=== PATIENT | female | born 1960 | race Caucasian/White ===

== ENCOUNTER 2016-07-20 22:00 | Inpatient (IN) | payer OTHER ==
[~2016-07-20] VITALS: Ht 162.6 cm; Wt 87.6 kg
[~2016-07-20 22:00] MED LIST: ABILIFY; ADVAIR HFA120 INHALA IH; ALBUTEROL; ALBUTEROL SULF8.5 GM IH; ALBUTEROL2.5 MG/3 M IH; AMBIEN10 MG PO; ATIVAN0.5 MG PO; ATIVAN1 MG PO; AUGMENTIN875 MG PO; AZITHROMYCIN250 MG PO; AZITHROMYCIN250 MG1 PO; AZITHROMYCIN500 M1 PO; Advair 250/50 Diskus IH; BACTRIM,SEPT1 TABLE1 PO; BACTRIM,SEPT1 TABLET PO; BENADRYL25 MG PO; BENADRYL50 MG PO; BENTYL10 MG PO; BENZONATATE100 MG PO; BENZTROPINE ME0.5 MG PO; BREO ELLIPTA I1 EACH IH; BUSPAR10 MG PO; BUSPAR15 MG PO; BUSPIRONE HCL10 MG PO; CO Q-10100 MG PO; COUMADIN2.5 MG PO; COZAAR25 MG PO; DELTASONE20 M1 PO; DIAZEPAM; DIAZEPAM2 MG PO; DICYCLOMINE HCL10 MG PO; DONNATAL1 TABLET PO; DOXYCYCLINE HY100 MG PO; DUONEB 2.5-0.5 M3 ML AEROSOL; EFFEXOR75 MG PO; FAMOTIDINE20 MG PO; FLEXERIL10 MG PO; GABAPENTIN300 MG PO; GABAPENTIN600 MG PO; GLUCOSA-CHOND-1 EACH PO; HYDROCODON-ACE1 EAC7 PO; INCRUSE ELLI62.5 MCG IH; K-DUR20 MEQ PO; KEFLEX500 MG PO; KLONOPIN1 MG PO; LATUDA60 MG PO; LEVAQUIN750 MG PO; LEXAPRO10 MG PO; LORAZEPAM0.5 MG PO; LUNESTA; MEDROL DOSEPAK4 MG PO; MICONAZOLE NITR45 GM VG; MORPHINE SULFAT15 M1 PO; MOVANTIK25 MG PO; NEURONTIN100 MG PO; NEXIUM40 MG PO; NICODERM CQ1 EAC2 TD; NICOTINE PATCH1 EAC1 TD; NICOTINE PATCH1 EAC2 TD; NORCO 10/3251 TABLET PO; NORCO 5/3251 TABLET PO; OMEPRAZOLE20 MG PO; OMEPRAZOLE40 M1 PO; PEPCID20 MG PO; PRAZOSIN HCL1 MG PO; PREDNISONE10 MG PO; PREDNISONE20 MG PO; PREDNISONE50 MG PO; PRILOSEC20 MG PO; PRILOSEC40 MG PO; PROAIR HFA8.5 GM IH; PROPRANOLOL HCL10 MG PO; PROPRANOLOL HCL80 MG PO; PROTONIX40 MG PO; PROVENTIL,2.5 MG/3 M IH; Proventil,Ventolin H IH; RISPERDAL M-TAB3 MG PO; RISPERDAL1 MG PO; RISPERDAL2 MG PO; RISPERDAL3 MG PO; RISPERIDONE1 MG PO; RISPERIDONE2 MG PO; ROBITUSSIN AC,T10 ML PO; SERTRALINE HCL100 MG PO; SERTRALINE HCL50 MG PO; SINGULAIR10 MG PO; SPIRIVA1 INHALATI IH; STRATTERA100 MG PO; SYMBICORT IH; SYMBICORT60 INHALAT IH; SYNTHROID150 MCG PO; TEMAZEPAM; TEMAZEPAM15 MG PO; TERBINAFINE HC250 MG PO; TYLENOL EXTRA500 MG PO; TYLENOL REGULA325 MG PO; ULTRAM50 MG PO; VENTOLIN HFA18 GM IH; VITAMIN D1000 INTUN PO; VOLTAREN75 MG PO; WELLBUTRIN PO; WELLBUTRIN SR150 MG PO; WELLBUTRIN XL150 MG PO; ZITHROMAX TRI-500 MG PO; ZITHROMAX Z-PA250 MG PO; ZITHROMAX250 MG PO; ZOFRAN4 MG PO; ZOLOFT25 MG PO; ZOLOFT50 MG PO; ZOLPIDEM TARTRA10 MG PO; ZOLPIDEM TARTRAT5 MG PO; Zithromax PO; predniSONE PO; risperDAL PO
[2016-07-20 22:33] LABS: HEMATOCRIT 38.9 % (36.0-46.0); MCH 31.3 PG (29.0-34.0); MCHC 33.9 G/DL (30.0-36.0); MCV 92.2 FL (83-99); MEAN PLAT.VOLUME 9.6 uM^3 (9.5-12.4); PLATELET COUNT 228 K/uL (156-360); RBC DIS.WIDTH-CV 13.4 % (11.8-14.6); RBC DIS.WIDTH-SD 44.1 % (39-53); RED BLOOD COUNT 4.22 M/uL (3.80-5.20); WHITE BLOOD COUNT 18.7 K/uL (4.1-10.2)
[2016-07-20 22:46] LABS: CHLORIDE 107 mEq/L (99-109); POTASSIUM 3.5 mEq/L (3.7-5.4)
[2016-07-20 22:47] LABS: SODIUM 139 mEq/L (136-147)
[2016-07-20 22:48] LABS: GLUCOSE 106 mg/dL (70-99)
[2016-07-20 22:50] LABS: ANION GAP 11 MEQ/L (2-14)
[2016-07-20 22:52] LABS: GFR ESTIMATE (CALCULATED) > 59 mL/min/
[2016-07-20 22:53] LABS: UREA NITROGEN (BUN) 8 mg/dL (9-23)
[2016-07-20 22:54] LABS: TROP-I INTERPRETATION NEGATIVE; TROPONIN-I < 0.01 ng/mL (0.0-0.30)
[2016-07-20 23:05] LABS: TOTAL BILIRUBIN 0.3 mg/dL (0.0-1.0)
[2016-07-20 23:07] LABS: ALKALINE PHOSPHATASE 58 IU/L (3-129)
[2016-07-20 23:09] LABS: DIRECT BILIRUBIN 0.1 mg/dL (0.0-0.3)
[2016-07-20 23:10] LABS: LIPASE 5 U/L (1.0-51.0)
[2016-07-21] MEDS ORDERED: FLEXERIL10 MG PO (00:25)
[2016-07-21] MEDS ORDERED: DELTASONE20 M1 PO (00:27)
[2016-07-21] MEDS ORDERED: CEFUROXIME500 MG PO (00:28)
[2016-07-21] MEDS ORDERED: LO-DOSE ASPIRIN81 M2 PO (00:28)
[2016-07-21] MEDS ORDERED: VRAYLAR3 MG PO (00:28)
[2016-07-21 12:00] VITALS: BP 113/66
[2016-07-21 16:40] VITALS: BP 134/76
[2016-07-21 18:25] LABS: INFLUENZA A VIRAL ANTIGEN NEGATIVE; INFLUENZA B VIRAL ANTIGEN NEGATIVE
[2016-07-21 23:17] VITALS: BP 118/71
[2016-07-22 04:25] VITALS: BP 118/70
[2016-07-22 06:31] LABS: EOSINOPHIL (%) 0 % (0-5); IMMATURE GRANULOCYTE (%) 0.4 % (0.0-0.7); IMMATURE GRANULOCYTE COUNT 0.1 K/uL; LYMPHOCYTE COUNT 0.8 K/uL (1.0-2.8); MCH 31.4 PG (29.0-34.0); MCHC 33.6 G/DL (30.0-36.0); MCV 93.5 FL (83-99); MEAN PLAT.VOLUME 9.9 uM^3 (9.5-12.4); MONOCYTE (%) 2.3 % (3-12); MONOCYTE COUNT 0.3 K/uL (0-0.8); NEUTROPHIL (%) 91.7 % (45-76); NEUTROPHIL COUNT 13.4 K/uL (1.8-6.4); PLATELET COUNT 217 K/uL (156-360); RBC DIS.WIDTH-CV 13.4 % (11.8-14.6); RBC DIS.WIDTH-SD 45.9 % (39-53); RED BLOOD COUNT 3.85 M/uL (3.80-5.20); WHITE BLOOD COUNT 14.6 K/uL (4.1-10.2)
[2016-07-22 07:08] LABS: ANION GAP 13 MEQ/L (2-14); CHLORIDE 105 MEQ/L (99-109); GFR ESTIMATE (CALCULATED) > 59 mL/min/; GLUCOSE 151 mg/dL (70-99); POTASSIUM 3.7 MEQ/L (3.7-5.4); SAMPLE HEMOLYSIS CHECK 0; SAMPLE ICTERIC CHECK 0; SAMPLE LIPEMIA CHECK 0; SODIUM 142 MEQ/L (136-147); UREA NITROGEN (BUN) 7 mg/dL (9-23)
[2016-07-22 08:27] VITALS: BP 131/69
[2016-07-22 12:22] VITALS: BP 111/58
[2016-07-22 16:14] VITALS: BP 150/73
[2016-07-22 23:27] VITALS: BP 158/88
[2016-07-23 06:45] LABS: HEMATOCRIT 34.9 % (36.0-46.0); MCH 31.2 PG (29.0-34.0); MCHC 33.5 G/DL (30.0-36.0); MCV 93.1 FL (83-99); MEAN PLAT.VOLUME 9.9 uM^3 (9.5-12.4); PLATELET COUNT 207 K/uL (156-360); RBC DIS.WIDTH-CV 13.4 % (11.8-14.6); RBC DIS.WIDTH-SD 45.8 % (39-53); RED BLOOD COUNT 3.75 M/uL (3.80-5.20); WHITE BLOOD COUNT 11.6 K/uL (4.1-10.2)
[2016-07-23 07:01] LABS: EOSINOPHIL (%) 0 % (0-5); IMMATURE GRANULOCYTE (%) 1.3 % (0.0-0.7); IMMATURE GRANULOCYTE COUNT 0.2 K/uL; MONOCYTE (%) 4.1 % (3-12); MONOCYTE COUNT 0.5 K/uL (0-0.8); NEUTROPHIL (%) 85.7 % (45-76)
[2016-07-23 07:14] LABS: ANION GAP 7 MEQ/L (2-14); CHLORIDE 106 MEQ/L (99-109); GFR ESTIMATE (CALCULATED) > 59 mL/min/; GLUCOSE 121 mg/dL (70-99); POTASSIUM 4.1 MEQ/L (3.7-5.4); SAMPLE HEMOLYSIS CHECK 0; SAMPLE ICTERIC CHECK 0; SAMPLE LIPEMIA CHECK 0; SODIUM 141 MEQ/L (136-147); UREA NITROGEN (BUN) 12 mg/dL (9-23)
[2016-07-23 07:46] VITALS: BP 123/74
[2016-07-23] MEDS ORDERED: PREDNISONE10 MG PO (14:26)
[2016-07-23] MEDS ORDERED: DOXYCYCLINE HY100 MG PO (14:26)
== END 2016-07-23 16:23 | disposition home or self-care (01) | DRG 192 ==
LOC: EME → EDBD 22:00 → EDOF 07-21 01:17 → 5EAST 07-21 01:17
PROVIDERS: Emergency Medicine; Family Medicine
DX: J44.1 Chronic obstructive pulmonary disease with (acute) exacerbation (principal); F25.9 Schizoaffective disorder, unspecified; I10 Essential (primary) hypertension; R09.02 Hypoxemia; F32.9 Major depressive disorder, single episode, unspecified; F41.9 Anxiety disorder, unspecified; K21.9 Gastro-esophageal reflux disease without esophagitis; G47.33 Obstructive sleep apnea (adult) (pediatric); Z86.718 Personal history of other venous thrombosis and embolism; J45.909 Unspecified asthma, uncomplicated; F17.210 Nicotine dependence, cigarettes, uncomplicated; G89.29 Other chronic pain; M54.9 Dorsalgia, unspecified; J44.0 Chronic obstructive pulmonary disease with (acute) lower respiratory infection; J20.9 Acute bronchitis, unspecified
CPT/HCPCS: 71020; 80048; 80076; 83605; 83690; 84484; 85025; 85027; 87040; 87502; 93005; 94640; 94640 76; 94799; 99202; 99281; 99285; J0696; J1650; J1885; J2930; J7030; J7050; J7644

== ENCOUNTER 2016-08-14 21:15 | Inpatient (IN) | payer OTHER ==
[~2016-08-14] VITALS: Ht 162.6 cm; Wt 89.4 kg
[~2016-08-14 21:15] MED LIST changes: +CEFUROXIME500 MG PO; +LO-DOSE ASPIRIN81 M2 PO; +VRAYLAR3 MG PO
[2016-08-14 21:56] LABS: EOSINOPHIL (%) 1.6 % (0-5); EOSINOPHIL COUNT 0.1 K/uL (0-0.3); HEMATOCRIT 37.2 % (36.0-46.0); IMMATURE GRANULOCYTE (%) 0.2 % (0.0-0.7); IMMATURE GRANULOCYTE COUNT 0.2 K/uL; LYMPHOCYTE COUNT 2.9 K/uL (1.0-2.8); MCH 31.9 PG (29.0-34.0); MCHC 34.4 G/DL (30.0-36.0); MCV 92.8 FL (83-99); MEAN PLAT.VOLUME 8.7 uM^3 (9.5-12.4); MONOCYTE (%) 7.6 % (3-12); MONOCYTE COUNT 0.7 K/uL (0-0.8); NEUTROPHIL (%) 58.2 % (45-76); NEUTROPHIL COUNT 5.2 K/uL (1.8-6.4); PLATELET COUNT 242 K/uL (156-360); RBC DIS.WIDTH-CV 14.2 % (11.8-14.6); RBC DIS.WIDTH-SD 46.9 % (39-53); RED BLOOD COUNT 4.01 M/uL (3.80-5.20); WHITE BLOOD COUNT 8.9 K/uL (4.1-10.2)
[2016-08-14 22:04] LABS: CHLORIDE 107 mEq/L (99-109); POTASSIUM 3.5 mEq/L (3.7-5.4); SODIUM 141 mEq/L (136-147)
[2016-08-14 22:06] LABS: GLUCOSE 95 mg/dL (70-99)
[2016-08-14 22:07] LABS: ANION GAP 12 MEQ/L (2-14)
[2016-08-14 22:08] LABS: TOTAL BILIRUBIN 0.3 mg/dL (0.0-1.0)
[2016-08-14 22:10] LABS: ALKALINE PHOSPHATASE 48 IU/L (3-129); GFR ESTIMATE (CALCULATED) > 59 mL/min/
[2016-08-14 22:11] LABS: UREA NITROGEN (BUN) 5 mg/dL (9-23)
[2016-08-14 22:17] LABS: TROP-I INTERPRETATION NEGATIVE; TROPONIN-I < 0.01 ng/mL (0.0-0.30)
[2016-08-14 23:34] LABS: INFLUENZA A VIRAL ANTIGEN NEGATIVE; INFLUENZA B VIRAL ANTIGEN NEGATIVE
[2016-08-15 04:11] VITALS: BP 127/72
[2016-08-15 08:00] VITALS: BP 134/72
[2016-08-15 12:05] VITALS: BP 120/74
[2016-08-15] MEDS ORDERED: VRAYLAR4.5 MG PO (12:28)
[2016-08-15] MEDS ORDERED: DUONEB 2.5-0.5 M3 ML AEROSOL (12:28)
[2016-08-15] MEDS ORDERED: LOPROX 0.77% CR30 GM TP (12:30)
[2016-08-15] MEDS ORDERED: VITAMIN D-32000 UNI2 PO (12:30)
[2016-08-15] MEDS ORDERED: OYSCO-500500 MG PO (12:31)
[2016-08-15 16:03] VITALS: BP 136/86
[2016-08-15 19:00] VITALS: BP 131/64
[2016-08-15 23:40] VITALS: BP 127/69
[2016-08-16 03:51] VITALS: BP 136/75
[2016-08-16 07:12] LABS: ANION GAP 9 MEQ/L (2-14); CHLORIDE 101 MEQ/L (99-109); GFR ESTIMATE (CALCULATED) > 59 mL/min/; GLUCOSE 96 mg/dL (70-99); POTASSIUM 3.9 MEQ/L (3.7-5.4); SAMPLE HEMOLYSIS CHECK 0; SAMPLE ICTERIC CHECK 0; SAMPLE LIPEMIA CHECK 0; SODIUM 135 MEQ/L (136-147); UREA NITROGEN (BUN) 9 mg/dL (9-23)
[2016-08-16 07:16] VITALS: BP 141/80
[2016-08-16 07:38] LABS: EOSINOPHIL (%) 0 % (0-5); HEMATOCRIT 37.3 % (36.0-46.0); IMMATURE GRANULOCYTE (%) 0.5 % (0.0-0.7); IMMATURE GRANULOCYTE COUNT 0.1 K/uL; MCH 31.3 PG (29.0-34.0); MCHC 33.8 G/DL (30.0-36.0); MCV 92.8 FL (83-99); MEAN PLAT.VOLUME 9.6 uM^3 (9.5-12.4); MONOCYTE (%) 7.2 % (3-12); MONOCYTE COUNT 0.9 K/uL (0-0.8); NEUTROPHIL (%) 84.3 % (45-76); NEUTROPHIL COUNT 10.7 K/uL (1.8-6.4); PLATELET COUNT 239 K/uL (156-360); RBC DIS.WIDTH-CV 14.3 % (11.8-14.6); RBC DIS.WIDTH-SD 49.1 % (39-53); RED BLOOD COUNT 4.02 M/uL (3.80-5.20)
[2016-08-16 07:51] LABS: WHITE BLOOD COUNT 12.7 K/uL (4.1-10.2)
[2016-08-16 12:00] VITALS: BP 136/80
[2016-08-16 16:00] VITALS: BP 143/82
[2016-08-16] MEDS ORDERED: AZITHROMYCIN500 M1 PO (18:44)
[2016-08-16] MEDS ORDERED: PREDNISONE50 MG PO (18:48)
[2016-08-16] MEDS ORDERED: DUONEB 2.5-0.5 M3 ML AEROSOL (20:11)
== END 2016-08-16 20:45 | disposition home or self-care (01) | DRG 192 ==
LOC: EME 21:15 → EDOF 08-15 02:26 → 4EAST 08-15 03:59
PROVIDERS: Emergency Medicine; Family Medicine Sports Medicine
DX: J44.1 Chronic obstructive pulmonary disease with (acute) exacerbation (principal); F12.10 Cannabis abuse, uncomplicated; F32.9 Major depressive disorder, single episode, unspecified; K21.9 Gastro-esophageal reflux disease without esophagitis; F25.1 Schizoaffective disorder, depressive type; M54.9 Dorsalgia, unspecified; R09.02 Hypoxemia; J20.9 Acute bronchitis, unspecified; Z88.1 Allergy status to other antibiotic agents; Z91.011 Allergy to milk products
CPT/HCPCS: 71020; 80048; 80053; 83880; 84484; 85025; 87502; 93005; 94640; 94640 76; 94799; 99202; 99281; 99285; J0456; J2930; J7512

== ENCOUNTER 2016-09-10 09:35 | Inpatient (IN) | payer OTHER ==
[~2016-09-10] VITALS: Ht 162.6 cm; Wt 83.2 kg
[~2016-09-10 09:35] MED LIST changes: +LOPROX 0.77% CR30 GM TP; +OYSCO-500500 MG PO; +VITAMIN D-32000 UNI2 PO; +VRAYLAR4.5 MG PO
[2016-09-10 12:01] LABS: ADD MIUA? NO; BILIRUBIN NEGATIVE; BLOOD NEGATIVE; COLOR YELLOW ((YELLOW)); GLUCOSE (STRIP) NEGATIVE; KETONES NEGATIVE; LEUKOCYTES NEGATIVE; NITRITE NEGATIVE; PROTEIN (STRIP) NEGATIVE; SPECIFIC GRAVITY 1.006 (1.000-1.030); UROBILINOGEN 0.2 MG/DL (0.2-1.0)
[2016-09-10 12:02] LABS: EOSINOPHIL (%) 1.3 % (0-5); EOSINOPHIL COUNT 0.1 K/uL (0-0.3); HEMATOCRIT 37.4 % (36.0-46.0); IMMATURE GRANULOCYTE (%) 0.5 % (0.0-0.7); IMMATURE GRANULOCYTE COUNT 0.3 K/uL; LYMPHOCYTE COUNT 1.4 K/uL (1.0-2.8); MCH 30.8 PG (29.0-34.0); MCHC 33.2 G/DL (30.0-36.0); MCV 92.8 FL (83-99); MEAN PLAT.VOLUME 9.3 uM^3 (9.5-12.4); MONOCYTE COUNT 0.6 K/uL (0-0.8); NEUTROPHIL (%) 65.4 % (45-76); NEUTROPHIL COUNT 4.1 K/uL (1.8-6.4); PLATELET COUNT 227 K/uL (156-360); RBC DIS.WIDTH-CV 13.8 % (11.8-14.6); RBC DIS.WIDTH-SD 45.7 % (39-53); RED BLOOD COUNT 4.03 M/uL (3.80-5.20)
[2016-09-10 12:11] LABS: CHLORIDE 106 mEq/L (99-109); POTASSIUM 3.6 mEq/L (3.7-5.4); SODIUM 140 mEq/L (136-147)
[2016-09-10 12:14] LABS: GLUCOSE 134 mg/dL (70-99)
[2016-09-10 12:15] LABS: ANION GAP 9 MEQ/L (2-14); TOTAL BILIRUBIN 0.3 mg/dL (0.0-1.0)
[2016-09-10 12:16] LABS: SERUM ETHYL ALCOHOL < 10 mg/dL
[2016-09-10 12:17] LABS: ADD MEDTOX COMMENT Y; AMPHETAMINE NEGATIVE (500 ng/mL); BARBITURATES NEGATIVE (200 ng/mL); BENZODIAZEPINES NEGATIVE (150 ng/mL); COCAINE NEGATIVE (150 ng/mL); INTERNAL CONTROLS VALID? YES; METHADONE NEGATIVE (200 ng/mL); METHAMPHETAMINE NEGATIVE (500 ng/mL); OPIATES (MORPHINE) PRESUMPTIVE POSITIVE (100 ng/mL); OXYCODONE NEGATIVE (100 ng/mL); PHENCYCLIDINE NEGATIVE (25 ng/mL); PROPOXYPHENE NEGATIVE (300 ng/mL); THC CANNABINOIDS NEGATIVE (50 ng/mL); TRICYCLIC ANTIDEPRESSANTS NEGATIVE (300 ng/mL)
[2016-09-10 12:17] LABS: ALKALINE PHOSPHATASE 59 IU/L (3-129); GFR ESTIMATE (CALCULATED) > 59 mL/min/
[2016-09-10 12:18] LABS: UREA NITROGEN (BUN) 5 mg/dL (9-23)
[2016-09-10 12:27] LABS: WHITE BLOOD COUNT 6.2 K/uL (4.1-10.2)
[2016-09-10] MEDS ORDERED: BREO ELLIPTA I1 EACH IH (15:23)
[2016-09-10] MEDS ORDERED: VOLTAREN 1% GE100 GM TP (15:24)
[2016-09-10] MEDS ORDERED: AMLODIPINE BESYL5 MG PO (15:25)
[2016-09-10] MEDS ORDERED: VITAMIN D31000 UNIT PO (15:29)
[2016-09-10] MEDS ORDERED: PREDNISONE10 MG PO (15:30)
[2016-09-10 16:29] VITALS: BP 136/80
[2016-09-11 07:48] VITALS: BP 143/93
[2016-09-11 15:36] VITALS: BP 109/61
[2016-09-12 08:00] VITALS: BP 140/67
[2016-09-12 09:08] LABS: EOSINOPHIL (%) 2.4 % (0-5); EOSINOPHIL COUNT 0.1 K/uL (0-0.3); HEMATOCRIT 37.4 % (36.0-46.0); IMMATURE GRANULOCYTE (%) 0.2 % (0.0-0.7); LYMPHOCYTE COUNT 1.9 K/uL (1.0-2.8); MCH 30.9 PG (29.0-34.0); MCHC 33.7 G/DL (30.0-36.0); MCV 91.7 FL (83-99); MEAN PLAT.VOLUME 9.4 uM^3 (9.5-12.4); MONOCYTE (%) 8.9 % (3-12); MONOCYTE COUNT 0.5 K/uL (0-0.8); NEUTROPHIL (%) 55.9 % (45-76); NEUTROPHIL COUNT 3.3 K/uL (1.8-6.4); PLATELET COUNT 195 K/uL (156-360); RBC DIS.WIDTH-CV 13.7 % (11.8-14.6); RBC DIS.WIDTH-SD 45.7 % (39-53); RED BLOOD COUNT 4.08 M/uL (3.80-5.20); WHITE BLOOD COUNT 5.9 K/uL (4.1-10.2)
[2016-09-12 09:45] LABS: ANION GAP 7 MEQ/L (2-14); CHLORIDE 100 MEQ/L (99-109); GFR ESTIMATE (CALCULATED) > 59 mL/min/; GLUCOSE 117 mg/dL (70-99); POTASSIUM 3.6 MEQ/L (3.7-5.4); SAMPLE HEMOLYSIS CHECK 0; SAMPLE ICTERIC CHECK 0; SAMPLE LIPEMIA CHECK 0; SODIUM 134 MEQ/L (136-147); UREA NITROGEN (BUN) 7 mg/dL (9-23)
[2016-09-12 15:37] VITALS: BP 127/72
[2016-09-13 05:41] VITALS: BP 132/86
[2016-09-13 09:21] VITALS: BP 111/64
[2016-09-13 15:11] VITALS: BP 111/57
[2016-09-14 07:36] VITALS: BP 116/67
[2016-09-14 15:28] VITALS: BP 125/75
[2016-09-15 08:05] VITALS: BP 144/66
[2016-09-15 15:01] VITALS: BP 137/75
[2016-09-16 07:34] VITALS: BP 128/96
[2016-09-16 15:31] VITALS: BP 128/72
[2016-09-17 08:01] VITALS: BP 133/68
[2016-09-17 15:03] VITALS: BP 136/75
[2016-09-18 07:38] VITALS: BP 130/67
[2016-09-18 15:16] VITALS: BP 104/55
[2016-09-19 07:51] VITALS: BP 141/77
[2016-09-19] MEDS ORDERED: SERTRALINE HCL100 MG PO (09:40)
[2016-09-19] MEDS ORDERED: OLANZAPINE10 MG PO (09:40)
[2016-09-19] MEDS ORDERED: PREDNISONE10 MG PO (09:40)
[2016-09-19] MEDS ORDERED: FLEXERIL10 MG PO (09:40)
[2016-09-19] MEDS ORDERED: DOCUSATE SODIU100 MG PO (09:40)
[2016-09-19] MEDS ORDERED: AMLODIPINE BESYL5 MG PO (09:40)
[2016-09-19] MEDS ORDERED: PRAZOSIN HCL1 MG PO (09:40)
== END 2016-09-19 10:55 | disposition home or self-care (01) | DRG 885 ==
LOC: EME 09:35 → 1WEST 14:30 → EDOF 14:30 → 1WEST 16:27
PROVIDERS: Emergency Medicine; Family Medicine Sports Medicine
DX: F25.1 Schizoaffective disorder, depressive type (principal); R45.851 Suicidal ideations; F41.9 Anxiety disorder, unspecified; K21.9 Gastro-esophageal reflux disease without esophagitis; Z91.19 Patient's noncompliance with other medical treatment and regimen; G47.33 Obstructive sleep apnea (adult) (pediatric); G89.29 Other chronic pain; I10 Essential (primary) hypertension; F17.200 Nicotine dependence, unspecified, uncomplicated; Z86.718 Personal history of other venous thrombosis and embolism
CPT/HCPCS: 71020; 80048; 80053; 81003; 84999; 85025; 90839; 94640; 94640 76; 94760; 97150 GO; 97165 GO; 99202; 99281; 99285; G0480; J7512

== ENCOUNTER 2016-10-03 16:32 | Emergency (ER) | payer OTHER ==
[~2016-10-03] VITALS: Ht 162.6 cm; Wt 85.3 kg
[~2016-10-03 16:32] MED LIST changes: +AMLODIPINE BESYL5 MG PO; +DOCUSATE SODIU100 MG PO; +OLANZAPINE10 MG PO; +VITAMIN D31000 UNIT PO; +VOLTAREN 1% GE100 GM TP
[2016-10-03 19:26] VITALS: BP 154/82
== END 2016-10-03 19:27 | disposition home or self-care (01) ==
LOC: EME 16:32
DX: F32.9 Major depressive disorder, single episode, unspecified (principal); F31.9 Bipolar disorder, unspecified; F25.1 Schizoaffective disorder, depressive type; F17.200 Nicotine dependence, unspecified, uncomplicated; Z88.1 Allergy status to other antibiotic agents; Z91.011 Allergy to milk products; Z79.82 Long term (current) use of aspirin; J45.909 Unspecified asthma, uncomplicated; J44.9 Chronic obstructive pulmonary disease, unspecified; I10 Essential (primary) hypertension; K21.9 Gastro-esophageal reflux disease without esophagitis
CPT/HCPCS: 90839; 99281; 99285

== ENCOUNTER 2016-10-09 11:56 | Emergency (ER) | payer OTHER ==
[~2016-10-09] VITALS: Ht 162.6 cm; Wt 82.7 kg
[2016-10-09 12:39] LABS: HEMATOCRIT 43.2 % (36.0-46.0); MCH 30.2 PG (29.0-34.0); MCHC 33.1 G/DL (30.0-36.0); MCV 91.3 FL (83-99); MEAN PLAT.VOLUME 9.4 uM^3 (9.5-12.4); RBC DIS.WIDTH-CV 13.6 % (11.8-14.6); RBC DIS.WIDTH-SD 46.3 % (39-53); RED BLOOD COUNT 4.73 M/uL (3.80-5.20)
[2016-10-09 12:46] LABS: PLATELET COUNT 297 K/uL (156-360); WHITE BLOOD COUNT 8.4 K/uL (4.1-10.2)
[2016-10-09 12:53] LABS: CHLORIDE 110 mEq/L (99-109); POTASSIUM 3.9 mEq/L (3.7-5.4); SODIUM 142 mEq/L (136-147)
[2016-10-09 12:55] LABS: GLUCOSE 103 mg/dL (70-99)
[2016-10-09 12:57] LABS: ANION GAP 10 MEQ/L (2-14)
[2016-10-09 12:59] LABS: GFR ESTIMATE (CALCULATED) > 59 mL/min/
[2016-10-09 13:00] LABS: UREA NITROGEN (BUN) 10 mg/dL (9-23)
[2016-10-09 13:01] LABS: TROP-I INTERPRETATION NEGATIVE; TROPONIN-I < 0.01 ng/mL (0.0-0.30)
[2016-10-09 15:53] LABS: TROP-I INTERPRETATION NEGATIVE; TROPONIN-I < 0.01 ng/mL (0.0-0.30)
[2016-10-09] MEDS ORDERED: PREDNISONE20 MG PO (16:24)
[2016-10-09 16:32] VITALS: BP 124/100
[2016-10-10] MEDS ORDERED: PREDNISONE50 MG PO (05:17)
== END 2016-10-09 16:39 | disposition home or self-care (01) ==
LOC: EME 11:56 → RME 11:56
PROVIDERS: Physician Assistant
DX: R07.9 Chest pain, unspecified (principal); G89.29 Other chronic pain; M54.89 Other dorsalgia; J44.9 Chronic obstructive pulmonary disease, unspecified; J45.909 Unspecified asthma, uncomplicated; Z79.891 Long term (current) use of opiate analgesic; Z79.82 Long term (current) use of aspirin; F17.200 Nicotine dependence, unspecified, uncomplicated
CPT/HCPCS: 71020; 80048; 84484; 85027; 93005; 99281; 99283; J1100

== ENCOUNTER 2016-10-09 21:45 | Emergency (ER) | payer OTHER ==
[~2016-10-09] VITALS: Ht 162.6 cm; Wt 83.0 kg
[2016-10-10 01:14] LABS: HEMATOCRIT 41.9 % (36.0-46.0); MCHC 34.1 G/DL (30.0-36.0); MCV 90.9 FL (83-99); MEAN PLAT.VOLUME 9.5 uM^3 (9.5-12.4); PLATELET COUNT 332 K/uL (156-360); RBC DIS.WIDTH-CV 13.5 % (11.8-14.6); RBC DIS.WIDTH-SD 45.5 % (39-53); RED BLOOD COUNT 4.61 M/uL (3.80-5.20)
[2016-10-10 01:15] LABS: WHITE BLOOD COUNT 5.8 K/uL (4.1-10.2)
[2016-10-10 01:19] LABS: CHLORIDE 111 mEq/L (99-109); POTASSIUM 4.4 mEq/L (3.7-5.4); SODIUM 142 mEq/L (136-147)
[2016-10-10 01:21] LABS: GLUCOSE 142 mg/dL (70-99)
[2016-10-10 01:22] LABS: ANION GAP 11 MEQ/L (2-14)
[2016-10-10 01:25] LABS: GFR ESTIMATE (CALCULATED) > 59 mL/min/; UREA NITROGEN (BUN) 15 mg/dL (9-23)
[2016-10-10 01:26] LABS: TROP-I INTERPRETATION NEGATIVE; TROPONIN-I < 0.01 ng/mL (0.0-0.30)
[2016-10-10 01:34] LABS: QUANTITATIVE HCG < 4.0 MIU/ML
[2016-10-10 03:33] LABS: TROP-I INTERPRETATION NEGATIVE; TROPONIN-I < 0.01 ng/mL (0.0-0.30)
[2016-10-10] MEDS ORDERED: PREDNISONE50 MG PO (05:17)
[2016-10-10 05:52] VITALS: BP 135/85
== END 2016-10-10 05:53 | disposition home or self-care (01) ==
LOC: EME 21:45
PROVIDERS: Emergency Medicine
DX: J44.1 Chronic obstructive pulmonary disease with (acute) exacerbation (principal); R07.89 Other chest pain; J45.909 Unspecified asthma, uncomplicated; I10 Essential (primary) hypertension; K21.9 Gastro-esophageal reflux disease without esophagitis; F32.9 Major depressive disorder, single episode, unspecified; F25.9 Schizoaffective disorder, unspecified; F17.200 Nicotine dependence, unspecified, uncomplicated
CPT/HCPCS: 71020; 80048; 84484; 84702; 85027; 93005; 94640; 99281; 99284; J7512

== ENCOUNTER 2016-10-27 22:32 | Emergency (ER) | payer OTHER ==
[~2016-10-27] VITALS: Ht 162.6 cm; Wt 82.5 kg
[2016-10-27 23:35] LABS: CHLORIDE 105 mEq/L (99-109); POTASSIUM 3.9 mEq/L (3.7-5.4); SODIUM 137 mEq/L (136-147)
[2016-10-27 23:37] LABS: GLUCOSE 105 mg/dL (70-99)
[2016-10-27 23:38] LABS: ANION GAP 10 MEQ/L (2-14)
[2016-10-27 23:41] LABS: GFR ESTIMATE (CALCULATED) > 59 mL/min/
[2016-10-27 23:42] LABS: UREA NITROGEN (BUN) 4 mg/dL (9-23)
[2016-10-27 23:45] LABS: HEMATOCRIT 42.7 % (36.0-46.0); MCH 30.5 PG (29.0-34.0); MCHC 33.5 G/DL (30.0-36.0); MEAN PLAT.VOLUME 9.9 uM^3 (9.5-12.4); PLATELET COUNT 302 K/uL (156-360); RBC DIS.WIDTH-CV 13.6 % (11.8-14.6); RBC DIS.WIDTH-SD 45.6 % (39-53); RED BLOOD COUNT 4.69 M/uL (3.80-5.20)
[2016-10-27 23:46] LABS: WHITE BLOOD COUNT 12.1 K/uL (4.1-10.2)
[2016-10-27 23:47] LABS: TROP-I INTERPRETATION NEGATIVE; TROPONIN-I < 0.01 ng/mL (0.0-0.30)
[2016-10-28] MEDS ORDERED: PREDNISONE50 MG PO (00:53)
[2016-10-28] MEDS ORDERED: DOXYCYCLINE HY100 MG PO (00:53)
[2016-10-28 01:15] VITALS: BP 138/82
== END 2016-10-28 01:16 | disposition home or self-care (01) ==
LOC: EME 22:32
PROVIDERS: Emergency Medicine
DX: J44.0 Chronic obstructive pulmonary disease with (acute) lower respiratory infection (principal); J18.9 Pneumonia, unspecified organism; J44.1 Chronic obstructive pulmonary disease with (acute) exacerbation; J45.909 Unspecified asthma, uncomplicated; G89.29 Other chronic pain; I10 Essential (primary) hypertension; K21.9 Gastro-esophageal reflux disease without esophagitis; Z79.82 Long term (current) use of aspirin; F17.200 Nicotine dependence, unspecified, uncomplicated
CPT/HCPCS: 71020; 80048; 84484; 85027; 93005; 94640; 99281; 99284; J7512

== ENCOUNTER 2016-10-31 12:10 | Emergency (ER) | payer OTHER ==
[~2016-10-31] VITALS: Ht 162.6 cm; Wt 81.1 kg
[2016-10-31 13:05] LABS: HEMATOCRIT 41.4 % (36.0-46.0); MCH 30.5 PG (29.0-34.0); MCHC 33.8 G/DL (30.0-36.0); MCV 90.2 FL (83-99); MEAN PLAT.VOLUME 10.4 uM^3 (9.5-12.4); PLATELET COUNT 238 K/uL (156-360); RBC DIS.WIDTH-CV 13.5 % (11.8-14.6); RBC DIS.WIDTH-SD 44.6 % (39-53); RED BLOOD COUNT 4.59 M/uL (3.80-5.20); WHITE BLOOD COUNT 10.1 K/uL (4.1-10.2)
[2016-10-31 13:17] LABS: CHLORIDE 109 mEq/L (99-109); POTASSIUM 3.6 mEq/L (3.7-5.4); SODIUM 142 mEq/L (136-147)
[2016-10-31 13:19] LABS: GLUCOSE 112 mg/dL (70-99)
[2016-10-31 13:20] LABS: ANION GAP 11 MEQ/L (2-14)
[2016-10-31 13:22] LABS: SERUM ETHYL ALCOHOL < 10 mg/dL
[2016-10-31 13:23] LABS: GFR ESTIMATE (CALCULATED) > 59 mL/min/
[2016-10-31 13:24] LABS: UREA NITROGEN (BUN) 6 mg/dL (9-23)
[2016-10-31 13:26] LABS: ADD MEDTOX COMMENT Y; AMPHETAMINE NEGATIVE (500 ng/mL); BARBITURATES NEGATIVE (200 ng/mL); BENZODIAZEPINES NEGATIVE (150 ng/mL); COCAINE NEGATIVE (150 ng/mL); INTERNAL CONTROLS VALID? YES; METHADONE NEGATIVE (200 ng/mL); METHAMPHETAMINE NEGATIVE (500 ng/mL); OPIATES (MORPHINE) PRESUMPTIVE POSITIVE (100 ng/mL); OXYCODONE NEGATIVE (100 ng/mL); PHENCYCLIDINE NEGATIVE (25 ng/mL); PROPOXYPHENE NEGATIVE (300 ng/mL); THC CANNABINOIDS NEGATIVE (50 ng/mL); TRICYCLIC ANTIDEPRESSANTS NEGATIVE (300 ng/mL)
[2016-10-31 21:49] VITALS: BP 133/86
== END 2016-10-31 22:08 ==
LOC: EME 12:10
DX: F25.1 Schizoaffective disorder, depressive type (principal); J44.9 Chronic obstructive pulmonary disease, unspecified; J45.909 Unspecified asthma, uncomplicated; Z79.82 Long term (current) use of aspirin; F17.200 Nicotine dependence, unspecified, uncomplicated
CPT/HCPCS: 80048; 84999; 85027; 90837; 94640; 94640 76; 99281; 99285; G0480

== ENCOUNTER → 2016-11-29 | Outpatient (CLI) | payer OTHER | END | disposition home or self-care (01) | DX: G93.5 Compression of brain (principal); R13.10 Dysphagia, unspecified; Q07.00 Arnold-Chiari syndrome without spina bifida or hydrocephalus | CPT/HCPCS: 92611 GN; G8996 GN; G8997 GN; G8998 GN ==

== ENCOUNTER 2017-01-19 16:19 | Emergency (ER) | payer OTHER ==
[~2017-01-19] VITALS: Ht 162.6 cm; Wt 81.7 kg
[2017-01-19 16:58] LABS: BASOPHIL COUNT 0.1 K/uL (0-0.1); EOSINOPHIL (%) 2.1 % (0-5); EOSINOPHIL COUNT 0.3 K/uL (0-0.3); HEMATOCRIT 39.1 % (36.0-46.0); IMMATURE GRANULOCYTE (%) 0.6 % (0.0-0.7); IMMATURE GRANULOCYTE COUNT 0.1 K/uL; INSTRUMENT ABS NEUTROPHIL CT 9.4 K/uL; LYMPHOCYTE COUNT 2.7 K/uL (1.0-2.8); MCH 30.8 PG (29.0-34.0); MCHC 33.8 G/DL (30.0-36.0); MCV 91.1 FL (83-99); MEAN PLAT.VOLUME 9.3 uM^3 (9.5-12.4); MONOCYTE COUNT 0.7 K/uL (0-0.8); NEUTROPHIL (%) 71.4 % (45-76); NEUTROPHIL COUNT 9.4 K/uL (1.8-6.4); PLATELET COUNT 194 K/uL (156-360); RBC DIS.WIDTH-CV 14.4 % (11.8-14.6); RBC DIS.WIDTH-SD 48.5 % (39-53); RED BLOOD COUNT 4.29 M/uL (3.80-5.20); WHITE BLOOD COUNT 13.2 K/uL (4.1-10.2)
[2017-01-19 17:08] LABS: CHLORIDE 111 mEq/L (99-109); POTASSIUM 3.7 mEq/L (3.7-5.4); SODIUM 144 mEq/L (136-147)
[2017-01-19 17:09] LABS: GLUCOSE 86 mg/dL (70-99)
[2017-01-19 17:11] LABS: ANION GAP 9 MEQ/L (2-14)
[2017-01-19 17:13] LABS: GFR ESTIMATE (CALCULATED) > 59 mL/min/
[2017-01-19 17:14] LABS: UREA NITROGEN (BUN) 9 mg/dL (9-23)
[2017-01-19 17:19] LABS: TROP-I INTERPRETATION NEGATIVE; TROPONIN-I < 0.01 ng/mL (0.0-0.30)
[2017-01-19] MEDS ORDERED: AZITHROMYCIN250 MG1 PO (18:40)
[2017-01-19] MEDS ORDERED: PREDNISONE50 MG PO (18:40)
[2017-01-19] MEDS ORDERED: VENTOLIN HFA18 GM IH (18:41)
[2017-01-19 19:01] VITALS: BP 109/55
== END 2017-01-19 19:08 | disposition home or self-care (01) ==
LOC: EME 16:19
PROVIDERS: Emergency Medicine
DX: J44.1 Chronic obstructive pulmonary disease with (acute) exacerbation (principal); F17.210 Nicotine dependence, cigarettes, uncomplicated; K21.9 Gastro-esophageal reflux disease without esophagitis; Z88.1 Allergy status to other antibiotic agents
CPT/HCPCS: 71010; 80048; 82803; 84484; 85025; 93005; 99281; 99285; J0456; J2930; J7644

== ENCOUNTER 2017-01-20 15:23 | Emergency (ER) | payer OTHER ==
[~2017-01-20] VITALS: Ht 162.6 cm; Wt 82.3 kg
[2017-01-20 15:36] LABS: CARBON DIOXIDE (BICARBONATE) 26.1 MEQ/L (20-31); EOSINOPHIL (%) 0.3 % (0-5); EOSINOPHIL COUNT 0.1 K/uL (0-0.3); HEMATOCRIT 38.1 % (36.0-46.0); IMMATURE GRANULOCYTE (%) 0.5 % (0.0-0.7); IMMATURE GRANULOCYTE COUNT 0.1 K/uL; LYMPHOCYTE COUNT 2.6 K/uL (1.0-2.8); MCH 30.6 PG (29.0-34.0); MCHC 33.9 G/DL (30.0-36.0); MCV 90.5 FL (83-99); MEAN PLAT.VOLUME 9.3 uM^3 (9.5-12.4); MONOCYTE (%) 5.3 % (3-12); MONOCYTE COUNT 1.1 K/uL (0-0.8); NEUTROPHIL (%) 80.4 % (45-76); PLATELET COUNT 197 K/uL (156-360); RBC DIS.WIDTH-CV 14.5 % (11.8-14.6); RBC DIS.WIDTH-SD 47.9 % (39-53); RED BLOOD COUNT 4.21 M/uL (3.80-5.20); WHITE BLOOD COUNT 19.9 K/uL (4.1-10.2)
[2017-01-20 15:44] LABS: CHLORIDE 111 mEq/L (99-109); POTASSIUM 3.4 mEq/L (3.7-5.4); SODIUM 143 mEq/L (136-147)
[2017-01-20 15:47] LABS: GLUCOSE 113 mg/dL (70-99)
[2017-01-20 15:48] LABS: ANION GAP 9 MEQ/L (2-14)
[2017-01-20 15:50] LABS: GFR ESTIMATE (CALCULATED) > 59 mL/min/
[2017-01-20 15:51] LABS: UREA NITROGEN (BUN) 8 mg/dL (9-23)
[2017-01-20 15:57] LABS: TROP-I INTERPRETATION NEGATIVE; TROPONIN-I < 0.01 ng/mL (0.0-0.30)
[2017-01-20 18:31] VITALS: BP 118/69
== END 2017-01-20 18:48 | disposition home or self-care (01) ==
LOC: EME 15:23
PROVIDERS: Emergency Medicine
DX: J44.1 Chronic obstructive pulmonary disease with (acute) exacerbation (principal); F25.1 Schizoaffective disorder, depressive type; I10 Essential (primary) hypertension; K21.9 Gastro-esophageal reflux disease without esophagitis; F17.210 Nicotine dependence, cigarettes, uncomplicated
CPT/HCPCS: 71010; 80048; 82803; 84484; 85025; 90839; 93005; 99281; 99284; J7512; J7644

== ENCOUNTER 2017-05-12 11:13 | Emergency (ER) | payer OTHER ==
[~2017-05-12] VITALS: Ht 160 cm; Wt 75.3 kg
[2017-05-12 11:38] LABS: BASOPHIL COUNT 0.1 K/uL (0-0.1); EOSINOPHIL (%) 2.6 % (0-5); EOSINOPHIL COUNT 0.3 K/uL (0-0.3); HEMATOCRIT 45.4 % (36.0-46.0); IMMATURE GRANULOCYTE (%) 0.3 % (0.0-0.7); INSTRUMENT ABS NEUTROPHIL CT 6.8 K/uL; LYMPHOCYTE COUNT 3.6 K/uL (1.0-2.8); MCH 29.9 PG (29.0-34.0); MCHC 33.3 G/DL (30.0-36.0); MCV 89.9 FL (83-99); MEAN PLAT.VOLUME 9.8 uM^3 (9.5-12.4); MONOCYTE COUNT 0.7 K/uL (0-0.8); NEUTROPHIL (%) 59.4 % (45-76); NEUTROPHIL COUNT 6.8 K/uL (1.8-6.4); PLATELET COUNT 291 K/uL (156-360); RBC DIS.WIDTH-CV 13.6 % (11.8-14.6); RBC DIS.WIDTH-SD 44.4 % (39-53); RED BLOOD COUNT 5.05 M/uL (3.80-5.20); WHITE BLOOD COUNT 11.5 K/uL (4.1-10.2)
[2017-05-12 11:44] LABS: INTER. NORMALIZED RATIO 1.1; PROTHROMBIN TIME 11.9 SEC (10.2-12.9)
[2017-05-12 11:47] LABS: PTT 28.9 SEC (25-37)
[2017-05-12 11:50] LABS: CHLORIDE 106 mEq/L (99-109); POTASSIUM 3.7 mEq/L (3.7-5.4); SODIUM 139 mEq/L (136-147)
[2017-05-12 11:52] LABS: GLUCOSE 107 mg/dL (70-99)
[2017-05-12 11:53] LABS: ANION GAP 11 MEQ/L (2-14)
[2017-05-12 11:54] LABS: TOTAL BILIRUBIN 0.3 mg/dL (0.0-1.0)
[2017-05-12 11:55] LABS: ALKALINE PHOSPHATASE 71 IU/L (3-129)
[2017-05-12 11:56] LABS: GFR ESTIMATE (CALCULATED) > 59 mL/min/
[2017-05-12 11:57] LABS: DIRECT BILIRUBIN 0.1 mg/dL (0.0-0.3); UREA NITROGEN (BUN) 2 mg/dL (9-23)
[2017-05-12 11:59] LABS: LIPASE 6 U/L (1.0-51.0)
[2017-05-12 12:00] LABS: TROP-I INTERPRETATION NEGATIVE; TROPONIN-I 0.15 ng/mL (0.0-0.30)
[2017-05-12 18:04] VITALS: BP 92/71
== END 2017-05-12 18:06 | disposition home or self-care (01) ==
LOC: EME 11:13
PROVIDERS: Emergency Medicine
DX: J44.1 Chronic obstructive pulmonary disease with (acute) exacerbation (principal); F25.1 Schizoaffective disorder, depressive type; I10 Essential (primary) hypertension; K21.9 Gastro-esophageal reflux disease without esophagitis; F32.9 Major depressive disorder, single episode, unspecified; Z87.01 Personal history of pneumonia (recurrent); Z79.82 Long term (current) use of aspirin; Z88.0 Allergy status to penicillin; F17.200 Nicotine dependence, unspecified, uncomplicated
CPT/HCPCS: 71020; 80048; 80076; 83605; 83690; 83880; 84484; 85025; 85610; 85730; 90839; 93005; 94640; 99281; 99285; J1630; J2930

== ENCOUNTER 2017-06-07 00:24 | Inpatient (IN) | payer OTHER ==
[2017-06-07] VITALS (16 sets, daily range): BP systolic 98–123; BP diastolic 62–87
[~2017-06-07] VITALS: Ht 167.6 cm; Wt 76.3 kg
[2017-06-07 00:53] LABS: BASOPHIL COUNT 0.1 K/uL (0-0.1); EOSINOPHIL (%) 3.3 % (0-5); EOSINOPHIL COUNT 0.4 K/uL (0-0.3); HEMATOCRIT 42.7 % (36.0-46.0); IMMATURE GRANULOCYTE (%) 0.4 % (0.0-0.7); INSTRUMENT ABS NEUTROPHIL CT 5.4 K/uL; MCH 30.8 PG (29.0-34.0); MCHC 33.7 G/DL (30.0-36.0); MCV 91.4 FL (83-99); MEAN PLAT.VOLUME 9.8 uM^3 (9.5-12.4); MONOCYTE (%) 5.7 % (3-12); MONOCYTE COUNT 0.6 K/uL (0-0.8); NEUTROPHIL (%) 51.6 % (45-76); NEUTROPHIL COUNT 5.4 K/uL (1.8-6.4); PLATELET COUNT 271 K/uL (156-360); RBC DIS.WIDTH-CV 14.2 % (11.8-14.6); RBC DIS.WIDTH-SD 47.6 % (39-53); RED BLOOD COUNT 4.67 M/uL (3.80-5.20); WHITE BLOOD COUNT 10.5 K/uL (4.1-10.2)
[2017-06-07 00:53] LABS: BASE EXCESS 0.7 mEq/L (-3 to +3); BICARBONATE 26.6 mEq/L (22-26); CARBOXY HGB 5.2 % (0-5); PO2 68 mm Hg (80-100); pH 7.37 (7.35-7.45)
[2017-06-07 00:54] LABS: COMMENTS - BLOOD GASES C+; DEVICE NC; O2 FLOW 6 L/MIN; PCO2 46 mm Hg (35-45); SITE LR; TOTAL RESP RATE 36 resp/min
[2017-06-07 00:58] LABS: PROTHROMBIN TIME 11.7 SEC (10.2-12.9)
[2017-06-07 01:00] LABS: PTT 29.4 SEC (25-37)
[2017-06-07 01:03] LABS: CHLORIDE 105 mEq/L (99-109); POTASSIUM 3.7 mEq/L (3.7-5.4); SODIUM 143 mEq/L (136-147)
[2017-06-07 01:04] LABS: MAGNESIUM 1.9 mg/dL (1.3-2.7)
[2017-06-07 01:05] LABS: GLUCOSE 110 mg/dL (70-99)
[2017-06-07 01:07] LABS: ANION GAP 13 MEQ/L (2-14)
[2017-06-07 01:09] LABS: GFR ESTIMATE (CALCULATED) > 59 mL/min/
[2017-06-07 01:10] LABS: UREA NITROGEN (BUN) 6 mg/dL (9-23)
[2017-06-07 01:13] LABS: TROP-I INTERPRETATION NEGATIVE; TROPONIN-I < 0.01 ng/mL (0.0-0.30)
[2017-06-07 05:57] LABS: D-DIMER ELISA < 150.00 ng/mLDDU (<230)
[2017-06-07 06:14] LABS: BASE EXCESS -0.6 mEq/L (-3 to +3); BICARBONATE 24.9 mEq/L (22-26); CARBOXY HGB 2.7 % (0-5); COMMENTS - BLOOD GASES C+; DEVICE NC; METHEMOGLOBIN 0.9 % (0-1.5); O2 FLOW 4 L/MIN; PCO2 43 mm Hg (35-45); PO2 78 mm Hg (80-100); SITE LR; TOTAL RESP RATE 28 resp/min; pH 7.37 (7.35-7.45)
[2017-06-07 10:02] LABS: METH RESISTANT S AUREUS PCR NEGATIVE (NEGATIVE)
[2017-06-07 10:24] LABS: PROBE CHECK PASS; SPECIMEN PROCESSING CONTROL PASS
[2017-06-07 15:58] LABS: BASE EXCESS 1.3 mEq/L (-3 to +3); BICARBONATE 26.6 mEq/L (22-26); CARBOXY HGB 1.2 % (0-5); COMMENTS - BLOOD GASES A+C+; DEVICE 840MASK VENT; METHEMOGLOBIN 1.5 % (0-1.5); PCO2 44 mm Hg (35-45); PO2 128 mm Hg (80-100); SITE RR; pH 7.39 (7.35-7.45)
[2017-06-07 15:59] LABS: FI02 40 %; MODE SPONT; PEEP 6 CM/H20; PRES. SUPPORT 12 CM/H2O; TOTAL RESP RATE 16 resp/min
[2017-06-07 21:45] LABS: CARBOXY HGB 1.5 % (0-5); METHEMOGLOBIN 1.3 % (0-1.5)
[2017-06-07 21:47] LABS: FI02 100 %; MECHANICAL RATE 20 resp/min; MODE AC; PCO2 117 mm Hg (35-45); PEEP 5 CM/H20; PO2 417 mm Hg (80-100); TIDAL VOLUME 400 ML; pH < 6.90 (7.35-7.45)
[2017-06-07 21:48] LABS: DEVICE VENT; SITE RR
[2017-06-07 22:44] LABS: BICARBONATE 22.3 mEq/L (22-26); CARBOXY HGB 1.4 % (0-5); DEVICE 840; FI02 50 %; INSPIRATION TIME 0.9 seconds; MECHANICAL RATE 24 resp/min; METHEMOGLOBIN 1.4 % (0-1.5); MODE AC/VC+; PCO2 61 mm Hg (35-45); PO2 157 mm Hg (80-100); SITE LR; TIDAL VOLUME 400 ML; TOTAL RESP RATE 32 resp/min
[2017-06-07 22:45] LABS: PEEP 5 CM/H20; pH 7.17 (7.35-7.45)
[2017-06-07 22:50] LABS: HEMATOCRIT 39.8 % (36.0-46.0); MCHC 32.9 G/DL (30.0-36.0); MCV 94.3 FL (83-99); MEAN PLAT.VOLUME 10.3 uM^3 (9.5-12.4); PLATELET COUNT 281 K/uL (156-360); RBC DIS.WIDTH-CV 13.9 % (11.8-14.6); RBC DIS.WIDTH-SD 47.8 % (39-53); RED BLOOD COUNT 4.22 M/uL (3.80-5.20); WHITE BLOOD COUNT 14.3 K/uL (4.1-10.2)
[2017-06-07 23:00] LABS: ANION GAP 12 MEQ/L (2-14); CHLORIDE 107 MEQ/L (99-109); SAMPLE HEMOLYSIS CHECK 0; SAMPLE ICTERIC CHECK 0; SAMPLE LIPEMIA CHECK 0; SODIUM 140 MEQ/L (136-147)
[2017-06-07 23:06] LABS: GFR ESTIMATE (CALCULATED) > 59 mL/min/; UREA NITROGEN (BUN) 13 mg/dL (9-23)
[2017-06-07 23:14] LABS: GLUCOSE 241 mg/dL (70-99); POTASSIUM 5.4 MEQ/L (3.7-5.4)
[2017-06-08] VITALS (24 sets, daily range): BP systolic 90–126; BP diastolic 44–68
[2017-06-08 05:41] LABS: HEMATOCRIT 37.1 % (36.0-46.0); MCH 30.4 PG (29.0-34.0); MCHC 32.9 G/DL (30.0-36.0); MCV 92.5 FL (83-99); MEAN PLAT.VOLUME 10.7 uM^3 (9.5-12.4); PLATELET COUNT 234 K/uL (156-360); RBC DIS.WIDTH-CV 14.2 % (11.8-14.6); RBC DIS.WIDTH-SD 48.4 % (39-53); RED BLOOD COUNT 4.01 M/uL (3.80-5.20)
[2017-06-08 06:00] LABS: ANION GAP 9 MEQ/L (2-14); CHLORIDE 109 MEQ/L (99-109); GFR ESTIMATE (CALCULATED) > 59 mL/min/; POTASSIUM 4.4 MEQ/L (3.7-5.4); SAMPLE HEMOLYSIS CHECK 1; SAMPLE ICTERIC CHECK 0; SAMPLE LIPEMIA CHECK 0; SODIUM 142 MEQ/L (136-147); UREA NITROGEN (BUN) 17 mg/dL (9-23)
[2017-06-08 06:01] LABS: GLUCOSE 108 mg/dL (70-99)
[2017-06-09] VITALS (23 sets, daily range): BP systolic 100–159; BP diastolic 57–98
[2017-06-10] VITALS (13 sets, daily range): BP systolic 0–153; BP diastolic 0–87
[2017-06-11 00:03] VITALS: BP 117/63
[2017-06-11 04:08] VITALS: BP 121/64
[2017-06-11 06:19] LABS: EOSINOPHIL (%) 0.1 % (0-5); HEMATOCRIT 38.1 % (36.0-46.0); IMMATURE GRANULOCYTE (%) 1.4 % (0.0-0.7); IMMATURE GRANULOCYTE COUNT 0.1 K/uL; INSTRUMENT ABS NEUTROPHIL CT 6.2 K/uL; LYMPHOCYTE COUNT 2.7 K/uL (1.0-2.8); MCH 29.9 PG (29.0-34.0); MCHC 33.3 G/DL (30.0-36.0); MCV 89.6 FL (83-99); MEAN PLAT.VOLUME 10.2 uM^3 (9.5-12.4); MONOCYTE (%) 6.3 % (3-12); MONOCYTE COUNT 0.6 K/uL (0-0.8); NEUTROPHIL (%) 63.8 % (45-76); NEUTROPHIL COUNT 6.2 K/uL (1.8-6.4); PLATELET COUNT 203 K/uL (156-360); RBC DIS.WIDTH-CV 14.1 % (11.8-14.6); RED BLOOD COUNT 4.25 M/uL (3.80-5.20); WHITE BLOOD COUNT 9.7 K/uL (4.1-10.2)
[2017-06-11 06:47] LABS: ANION GAP 10 MEQ/L (2-14); CHLORIDE 109 MEQ/L (99-109); GFR ESTIMATE (CALCULATED) > 59 mL/min/; GLUCOSE 86 mg/dL (70-99); POTASSIUM 3.8 MEQ/L (3.7-5.4); SAMPLE HEMOLYSIS CHECK 0; SAMPLE ICTERIC CHECK 0; SAMPLE LIPEMIA CHECK 0; SODIUM 145 MEQ/L (136-147); UREA NITROGEN (BUN) 14 mg/dL (9-23)
[2017-06-11 07:15] VITALS: BP 134/80
[2017-06-11 15:09] VITALS: BP 139/82
[2017-06-11 23:53] VITALS: BP 102/56
[2017-06-12 07:44] VITALS: BP 121/67
[2017-06-12] MEDS ORDERED: VIBRAMYCIN100 MG PO (09:12)
[2017-06-12] MEDS ORDERED: HYDROCODON-ACE1 EAC9 PO (09:12)
[2017-06-12] MEDS ORDERED: PREDNISONE10 MG PO (09:12)
[2017-06-12] MEDS ORDERED: SPIRIVA RESPIMAT4 GM IH (09:12)
== END 2017-06-12 10:50 | disposition home health service (06) | DRG 208 ==
LOC: EME → EDBD 00:24 → 4WEST 04:36 → 5SOUTH 04:36 → EDOF 04:36 → ENRESERV 04:39 → EDOF 06:25 → ENRESERV 07:32 → 4WEST 07:59 → ENRESERV 06-10 06:59 → 5SOUTH 06-10 16:06
PROVIDERS: Emergency Medicine; Hospitalist; Internal Medicine Pulmonary Disease; Physician Assistant Medical; Specialist; Student in an Organized Health Care Education/Training Program
DX: J96.21 Acute and chronic respiratory failure with hypoxia (principal); J18.9 Pneumonia, unspecified organism; J44.1 Chronic obstructive pulmonary disease with (acute) exacerbation; J44.0 Chronic obstructive pulmonary disease with (acute) lower respiratory infection; J98.11 Atelectasis; F33.9 Major depressive disorder, recurrent, unspecified; G89.4 Chronic pain syndrome; J96.22 Acute and chronic respiratory failure with hypercapnia; J20.9 Acute bronchitis, unspecified; I10 Essential (primary) hypertension; F17.210 Nicotine dependence, cigarettes, uncomplicated; G47.33 Obstructive sleep apnea (adult) (pediatric); K21.9 Gastro-esophageal reflux disease without esophagitis; F20.9 Schizophrenia, unspecified; M54.5 Low back pain; K58.0 Irritable bowel syndrome with diarrhea; R45.1 Restlessness and agitation; E66.9 Obesity, unspecified; Z91.011 Allergy to milk products; Z68.27 Body mass index [BMI] 27.0-27.9, adult; Z88.1 Allergy status to other antibiotic agents; Z87.01 Personal history of pneumonia (recurrent); Z79.82 Long term (current) use of aspirin; Z86.718 Personal history of other venous thrombosis and embolism; Z80.0 Family history of malignant neoplasm of digestive organs; Z82.5 Family history of asthma and other chronic lower respiratory diseases
CPT/HCPCS: 36600; 71010; 80048; 80048 91; 82803; 83735; 84484; 85025; 85027; 85379; 85610; 85730; 87070; 87205; 87641; 93005; 94002; 94003; 94010; 94640; 94640 76; 94644; 99202; 99281; 99285; J0696; J1100; J1650; J2250; J2704; J2920; J2930; J3010; J3475; J7030; J7050; J7644; S0028

== ENCOUNTER 2017-08-14 17:15 | Emergency (ER) | payer OTHER ==
[~2017-08-14] VITALS: Ht 162.6 cm; Wt 79.0 kg
[~2017-08-14 17:15] MED LIST changes: +HYDROCODON-ACE1 EAC9 PO; +SPIRIVA RESPIMAT4 GM IH; +VIBRAMYCIN100 MG PO
[2017-08-14 18:06] LABS: HEMOGLOBIN 13.4 G/DL (11.9-15.5); MCH 30.1 PG (29.0-34.0); MCHC 32.7 G/DL (30.0-36.0); MCV 92.1 FL (83-99); PLATELET COUNT 265 K/uL (156-360); RBC DIS.WIDTH-CV 14.8 % (11.8-14.6); RBC DIS.WIDTH-SD 50.4 % (39-53); RED BLOOD COUNT 4.45 M/uL (3.80-5.20); WHITE BLOOD COUNT 9.1 K/uL (4.1-10.2)
[2017-08-14 18:18] LABS: CHLORIDE 108 MEQ/L (99-109); POTASSIUM 4.6 MEQ/L (3.7-5.4); SODIUM 139 MEQ/L (136-147)
[2017-08-14 18:23] LABS: CREATININE 0.8 MG/DL (0.6-1.3); GFR ESTIMATE (CALCULATED) > 59 mL/min/; GLUCOSE 108 mg/dL (70-99); UREA NITROGEN (BUN) 7 mg/dL (9-23)
[2017-08-14 18:24] LABS: TROP-I INTERPRETATION NEGATIVE; TROPONIN-I < 0.01 ng/mL (0.0-0.30)
[2017-08-14] MEDS ORDERED: ZITHROMAX Z-PA250 MG PO (21:31)
[2017-08-14] MEDS ORDERED: PREDNISONE50 MG PO (21:31)
[2017-08-14 21:48] VITALS: BP 122/73
== END 2017-08-14 22:09 | disposition home or self-care (01) ==
LOC: EME 17:15
DX: J44.1 Chronic obstructive pulmonary disease with (acute) exacerbation (principal); J40 Bronchitis, not specified as acute or chronic; R61 Generalized hyperhidrosis; Z79.52 Long term (current) use of systemic steroids; Z87.01 Personal history of pneumonia (recurrent); Z88.1 Allergy status to other antibiotic agents; F17.200 Nicotine dependence, unspecified, uncomplicated
CPT/HCPCS: 71045; 80048; 84484; 85027; 93005; 94640; 94640 76; J2930

== ENCOUNTER → 2017-11-20 | Outpatient (CLI) | payer OTHER ==
[~2017-11-20] VITALS: Ht 162.6 cm; Wt 85.0 kg
[~2017-11-20] MED LIST changes: +INVEGA3 MG PO; +INVEGA9 M1 PO; +LYRICA100 MG PO; +LYRICA50 MG PO; +WELLBUTRIN100 MG PO
[2017-11-20 08:20] VITALS: BP 111/54
== END | disposition home or self-care (01) ==
LOC: IVINF 11-18 08:00
DX: M81.0 Age-related osteoporosis without current pathological fracture (principal); Z87.19 Personal history of other diseases of the digestive system; Z88.1 Allergy status to other antibiotic agents
CPT/HCPCS: 96374; J3489

== ENCOUNTER 2017-12-27 20:05 | Emergency (ER) | payer OTHER ==
[~2017-12-27] VITALS: Ht 160 cm; Wt 83.5 kg
[2017-12-27 21:21] LABS: HEMATOCRIT 39.5 % (36.0-46.0); HEMOGLOBIN 13.6 G/DL (11.9-15.5); MCHC 34.4 G/DL (30.0-36.0); PLATELET COUNT 230 K/uL (156-360); RBC DIS.WIDTH-CV 13.8 % (11.8-14.6); RBC DIS.WIDTH-SD 45.6 % (39-53); RED BLOOD COUNT 4.39 M/uL (3.80-5.20)
[2017-12-27 21:24] LABS: APPEARANCE CLEAR ((CLEAR)); BILIRUBIN NEGATIVE; BLOOD NEGATIVE; COLOR YELLOW ((YELLOW)); GLUCOSE (STRIP) NEGATIVE; KETONES NEGATIVE; LEUKOCYTES MODERATE; NITRITE NEGATIVE; PROTEIN (STRIP) NEGATIVE; SPECIFIC GRAVITY 1.006 (1.000-1.030); UROBILINOGEN 0.2 MG/DL (0.2-1.0)
[2017-12-27 21:29] LABS: CHLORIDE 105 mEq/L (99-109); POTASSIUM 3.7 mEq/L (3.7-5.4); SODIUM 139 mEq/L (136-147)
[2017-12-27 21:31] LABS: AMPHETAMINE NEGATIVE (500 ng/mL); BARBITURATES NEGATIVE (200 ng/mL); BENZODIAZEPINES PRESUMPTIVE POSITIVE (150 ng/mL); BUPRENORPHINE NEGATIVE (10 ng/mL); COCAINE NEGATIVE (150 ng/mL); METHADONE NEGATIVE (200 ng/mL); METHAMPHETAMINE NEGATIVE (500 ng/mL); OPIATES (MORPHINE) PRESUMPTIVE POSITIVE (100 ng/mL); OXYCODONE NEGATIVE (100 ng/mL); PHENCYCLIDINE NEGATIVE (25 ng/mL); PROPOXYPHENE NEGATIVE (300 ng/mL); THC CANNABINOIDS NEGATIVE (50 ng/mL); TRICYCLIC ANTIDEPRESSANTS NEGATIVE (300 ng/mL)
[2017-12-27 21:32] LABS: GLUCOSE 91 mg/dL (70-99); TOTAL PROTEIN 6.2 g/dL (6.4-8.3)
[2017-12-27 21:34] LABS: TOTAL BILIRUBIN 0.4 mg/dL (0.0-1.0)
[2017-12-27 21:35] LABS: ALKALINE PHOSPHATASE 62 IU/L (3-129); CREATININE 0.7 mg/dL (0.6-1.3); GFR ESTIMATE (CALCULATED) > 59 mL/min/
[2017-12-27 21:36] LABS: UREA NITROGEN (BUN) 5 mg/dL (9-23)
[2017-12-27 21:37] LABS: BACTERIA RARE /HPF; EPITHELIAL CELLS RARE /HPF; MUCUS NONE SEEN /LPF; RED BLOOD CELLS 0-5 /HPF (0-5); UCUL ADDED? NO; WHITE BLOOD CELLS 0-5 /HPF (0-5)
[2017-12-27 21:37] LABS: AST (GOT) 13 IU/L (2-34)
[2017-12-27 21:38] LABS: ALT (GPT) 13 IU/L (3-49)
[2017-12-27 21:50] VITALS: BP 121/75
[2017-12-27 21:55] LABS: BENZODIAZEPINES, URINE SCREEN Negative (200 ng/mL)
== END 2017-12-27 22:03 | disposition home or self-care (01) ==
LOC: EME 20:05
PROVIDERS: Emergency Medicine
DX: F25.1 Schizoaffective disorder, depressive type (principal); J44.9 Chronic obstructive pulmonary disease, unspecified; I10 Essential (primary) hypertension; K21.9 Gastro-esophageal reflux disease without esophagitis; G89.29 Other chronic pain; M54.9 Dorsalgia, unspecified; F32.9 Major depressive disorder, single episode, unspecified; F17.200 Nicotine dependence, unspecified, uncomplicated; Z79.52 Long term (current) use of systemic steroids; Z86.69 Personal history of other diseases of the nervous system and sense organs; Z87.19 Personal history of other diseases of the digestive system; Z86.718 Personal history of other venous thrombosis and embolism; Z87.01 Personal history of pneumonia (recurrent); Z88.1 Allergy status to other antibiotic agents; Z91.011 Allergy to milk products
CPT/HCPCS: 80053; 81003; 84999; 85027; 90839; 99281; 99285

== ENCOUNTER 2017-12-31 11:49 | Emergency (ER) | payer OTHER ==
[~2017-12-31] VITALS: Ht 160 cm; Wt 85.5 kg
[2017-12-31 12:21] LABS: BASOPHIL (%) 0.6 % (0-1); BASOPHIL COUNT 0.1 K/uL (0-0.1); EOSINOPHIL (%) 1.6 % (0-5); EOSINOPHIL COUNT 0.2 K/uL (0-0.3); HEMATOCRIT 42.8 % (36.0-46.0); HEMOGLOBIN 14.6 G/DL (11.9-15.5); IMMATURE GRANULOCYTE (%) 0.4 % (0.0-0.7); LYMPHOCYTE COUNT 2.1 K/uL (1.0-2.8); MCHC 34.1 G/DL (30.0-36.0); MCV 90.9 FL (83-99); MONOCYTE COUNT 0.5 K/uL (0-0.8); NEUTROPHIL (%) 76.4 % (45-76); NEUTROPHIL COUNT 9.2 K/uL (1.8-6.4); PLATELET COUNT 247 K/uL (156-360); RBC DIS.WIDTH-CV 13.7 % (11.8-14.6); RBC DIS.WIDTH-SD 46.3 % (39-53); RED BLOOD COUNT 4.71 M/uL (3.80-5.20); WHITE BLOOD COUNT 12.1 K/uL (4.1-10.2)
[2017-12-31 12:26] LABS: APPEARANCE CLEAR ((CLEAR)); BILIRUBIN NEGATIVE; BLOOD NEGATIVE; COLOR YELLOW ((YELLOW)); GLUCOSE (STRIP) NEGATIVE; KETONES NEGATIVE; LEUKOCYTES LARGE; NITRITE NEGATIVE; PROTEIN (STRIP) NEGATIVE; SPECIFIC GRAVITY 1.006 (1.000-1.030); UROBILINOGEN 0.2 MG/DL (0.2-1.0)
[2017-12-31 12:31] LABS: CHLORIDE 105 mEq/L (99-109); POTASSIUM 4.3 mEq/L (3.7-5.4); SODIUM 141 mEq/L (136-147)
[2017-12-31 12:33] LABS: GLUCOSE 111 mg/dL (70-99)
[2017-12-31 12:36] LABS: CREATININE 0.8 mg/dL (0.6-1.3); GFR ESTIMATE (CALCULATED) > 59 mL/min/; SERUM ETHYL ALCOHOL < 10 mg/dL
[2017-12-31 12:37] LABS: BACTERIA RARE /HPF; CALCIUM OXALATE CRYSTALS 1+ /HPF; EPITHELIAL CELLS RARE /HPF; MUCUS NONE SEEN /LPF; RED BLOOD CELLS 0-5 /HPF (0-5); WHITE BLOOD CELLS 20-30 /HPF (0-5)
[2017-12-31 12:37] LABS: UREA NITROGEN (BUN) 8 mg/dL (9-23)
[2017-12-31 12:40] LABS: COCAINE NEGATIVE (150 ng/mL); METHAMPHETAMINE NEGATIVE (500 ng/mL); PHENCYCLIDINE NEGATIVE (25 ng/mL); THC CANNABINOIDS NEGATIVE (50 ng/mL)
[2017-12-31 12:41] LABS: AMPHETAMINE NEGATIVE (500 ng/mL); BARBITURATES NEGATIVE (200 ng/mL); BENZODIAZEPINES PRESUMPTIVE POSITIVE (150 ng/mL); BUPRENORPHINE NEGATIVE (10 ng/mL); METHADONE NEGATIVE (200 ng/mL); OPIATES (MORPHINE) PRESUMPTIVE POSITIVE (100 ng/mL); OXYCODONE NEGATIVE (100 ng/mL); PROPOXYPHENE NEGATIVE (300 ng/mL); TRICYCLIC ANTIDEPRESSANTS NEGATIVE (300 ng/mL)
[2017-12-31 13:16] LABS: BENZODIAZEPINES, URINE SCREEN Negative (200 ng/mL)
[2017-12-31 15:54] VITALS: BP 125/80
== END 2017-12-31 15:59 ==
LOC: EME 11:49
PROVIDERS: Emergency Medicine
DX: F25.1 Schizoaffective disorder, depressive type (principal); J44.9 Chronic obstructive pulmonary disease, unspecified; I10 Essential (primary) hypertension; K21.9 Gastro-esophageal reflux disease without esophagitis; F32.9 Major depressive disorder, single episode, unspecified; F17.200 Nicotine dependence, unspecified, uncomplicated; Z79.52 Long term (current) use of systemic steroids; Z87.01 Personal history of pneumonia (recurrent); Z86.69 Personal history of other diseases of the nervous system and sense organs; Z86.19 Personal history of other infectious and parasitic diseases; Z88.1 Allergy status to other antibiotic agents; Z91.011 Allergy to milk products
CPT/HCPCS: 80048; 81003; 84999; 85025; 90837; 99281; 99284; G0480

== ENCOUNTER 2018-03-07 20:55 | Emergency (ER) | payer OTHER ==
[~2018-03-07] VITALS: Ht 160 cm; Wt 87.7 kg
[2018-03-07 21:45] LABS: HEMATOCRIT 40.7 % (36.0-46.0); HEMOGLOBIN 13.7 G/DL (11.9-15.5); MCH 31.1 PG (29.0-34.0); MCHC 33.7 G/DL (30.0-36.0); MCV 92.3 FL (83-99); PLATELET COUNT 225 K/uL (156-360); RBC DIS.WIDTH-SD 47.9 % (39-53); RED BLOOD COUNT 4.41 M/uL (3.80-5.20); WHITE BLOOD COUNT 9.4 K/uL (4.1-10.2)
[2018-03-07 21:53] LABS: ALBUMIN 3.9 g/dL (3.2-4.8); CHLORIDE 107 mEq/L (99-109); POTASSIUM 3.7 mEq/L (3.7-5.4)
[2018-03-07 21:54] LABS: SODIUM 142 mEq/L (136-147)
[2018-03-07 21:56] LABS: GLUCOSE 97 mg/dL (70-99); TOTAL PROTEIN 6.1 g/dL (6.4-8.3)
[2018-03-07 21:58] LABS: TOTAL BILIRUBIN 0.3 mg/dL (0.0-1.0)
[2018-03-07 21:59] LABS: ALKALINE PHOSPHATASE 42 IU/L (3-129); SERUM ETHYL ALCOHOL < 10 mg/dL
[2018-03-07 22:00] LABS: CREATININE 0.7 mg/dL (0.6-1.3); GFR ESTIMATE (CALCULATED) > 59 mL/min/
[2018-03-07 22:01] LABS: AST (GOT) 13 IU/L (2-34); UREA NITROGEN (BUN) 7 mg/dL (9-23)
[2018-03-07 22:02] LABS: ALT (GPT) 13 IU/L (3-49)
[2018-03-07 22:03] LABS: LIPASE 12 U/L (1.0-51.0)
[2018-03-07 22:07] LABS: TROP-I INTERPRETATION NEGATIVE; TROPONIN-I < 0.01 ng/mL (0.0-0.30)
[2018-03-07] MEDS ORDERED: DOXYCYCLINE HY100 MG PO (22:36)
[2018-03-07] MEDS ORDERED: VENTOLIN HFA18 GM IH (22:37)
[2018-03-07] MEDS ORDERED: PREDNISONE20 MG PO (22:37)
[2018-03-07] MEDS ORDERED: ALBUTEROL2.5 MG/3 M IH (23:06)
[2018-03-07 23:21] VITALS: BP 120/74
[2018-03-08] MEDS ORDERED: AMLODIPINE BES2.5 MG PO (07:50)
[2018-03-08] MEDS ORDERED: LITHIUM CARBON300 MG PO (07:50)
[2018-03-08] MEDS ORDERED: DUONEB 2.5-0.5 M3 ML AEROSOL (07:51)
[2018-03-08] MEDS ORDERED: ATROVENT 00.5 MG/2.5 IH (07:51)
== END 2018-03-07 23:21 | disposition home or self-care (01) ==
LOC: EME → EDBD 20:55 → EME 23:21
PROVIDERS: Emergency Medicine
DX: J44.1 Chronic obstructive pulmonary disease with (acute) exacerbation (principal); J44.0 Chronic obstructive pulmonary disease with (acute) lower respiratory infection; J20.9 Acute bronchitis, unspecified; K21.9 Gastro-esophageal reflux disease without esophagitis; I10 Essential (primary) hypertension; F25.9 Schizoaffective disorder, unspecified; F17.200 Nicotine dependence, unspecified, uncomplicated; Z88.1 Allergy status to other antibiotic agents
CPT/HCPCS: 71046; 80053; 83690; 84484; 85027; 93005; 99281; 99285; G0480; J7512

== ENCOUNTER 2018-03-07 23:25 | Emergency (ER) | payer OTHER ==
[~2018-03-07] VITALS: Ht 160 cm; Wt 86.6 kg
[2018-03-08 04:53] LABS: ALBUMIN 4.3 g/dL (3.2-4.8); CHLORIDE 109 mEq/L (99-109); POTASSIUM 4.2 mEq/L (3.7-5.4); SODIUM 141 mEq/L (136-147)
[2018-03-08 04:55] LABS: TOTAL PROTEIN 6.7 g/dL (6.4-8.3)
[2018-03-08 04:56] LABS: GLUCOSE 170 mg/dL (70-99)
[2018-03-08 04:57] LABS: TOTAL BILIRUBIN 0.3 mg/dL (0.0-1.0)
[2018-03-08 04:58] LABS: SERUM ETHYL ALCOHOL < 10 mg/dL
[2018-03-08 04:59] LABS: CREATININE 0.8 mg/dL (0.6-1.3); GFR ESTIMATE (CALCULATED) > 59 mL/min/
[2018-03-08 05:00] LABS: ALKALINE PHOSPHATASE 46 IU/L (3-129)
[2018-03-08 05:01] LABS: AST (GOT) 16 IU/L (2-34); UREA NITROGEN (BUN) 7 mg/dL (9-23)
[2018-03-08 05:02] LABS: SALICYLATE < 5.0 MG/DL (15-30)
[2018-03-08 05:03] LABS: ACETAMINOPHEN (TYLENOL) < 10 mcg/mL (10-30); ALT (GPT) 15 IU/L (3-49)
[2018-03-08 05:04] LABS: HEMATOCRIT 43.6 % (36.0-46.0); HEMOGLOBIN 14.6 G/DL (11.9-15.5); MCHC 33.5 G/DL (30.0-36.0); MCV 92.6 FL (83-99); PLATELET COUNT 233 K/uL (156-360); RBC DIS.WIDTH-CV 14.1 % (11.8-14.6); RBC DIS.WIDTH-SD 48.1 % (39-53); RED BLOOD COUNT 4.71 M/uL (3.80-5.20); WHITE BLOOD COUNT 7.1 K/uL (4.1-10.2)
[2018-03-08 05:56] LABS: APPEARANCE CLEAR ((CLEAR)); BILIRUBIN NEGATIVE; BLOOD SMALL; COLOR YELLOW ((YELLOW)); GLUCOSE (STRIP) NEGATIVE; KETONES NEGATIVE; LEUKOCYTES SMALL; NITRITE NEGATIVE; PROTEIN (STRIP) NEGATIVE; SPECIFIC GRAVITY 1.011 (1.000-1.030); UROBILINOGEN 0.2 MG/DL (0.2-1.0)
[2018-03-08 06:00] LABS: BACTERIA NONE SEEN /HPF; EPITHELIAL CELLS RARE /HPF; MUCUS 1+ /LPF; RED BLOOD CELLS 0-5 /HPF (0-5); UCUL ADDED? NO; WHITE BLOOD CELLS 0-5 /HPF (0-5)
[2018-03-08] MEDS ORDERED: LITHIUM CARBON300 MG PO (07:50)
[2018-03-08] MEDS ORDERED: AMLODIPINE BES2.5 MG PO (07:50)
[2018-03-08] MEDS ORDERED: ATROVENT 00.5 MG/2.5 IH (07:51)
[2018-03-08] MEDS ORDERED: DUONEB 2.5-0.5 M3 ML AEROSOL (07:51)
[2018-03-08 07:58] LABS: AMPHETAMINE NEGATIVE (500 ng/mL); BARBITURATES NEGATIVE (200 ng/mL); BENZODIAZEPINES PRESUMPTIVE POSITIVE (150 ng/mL); BUPRENORPHINE NEGATIVE (10 ng/mL); COCAINE NEGATIVE (150 ng/mL); METHADONE NEGATIVE (200 ng/mL); METHAMPHETAMINE NEGATIVE (500 ng/mL); OPIATES (MORPHINE) PRESUMPTIVE POSITIVE (100 ng/mL); OXYCODONE PRESUMPTIVE POSITIVE (100 ng/mL); PHENCYCLIDINE NEGATIVE (25 ng/mL); PROPOXYPHENE NEGATIVE (300 ng/mL); THC CANNABINOIDS NEGATIVE (50 ng/mL); TRICYCLIC ANTIDEPRESSANTS NEGATIVE (300 ng/mL)
[2018-03-08 08:40] LABS: BENZODIAZEPINES, URINE SCREEN Negative (200 ng/mL)
[2018-03-08 11:54] VITALS: BP 128/67
== END 2018-03-08 11:55 ==
LOC: EME 23:25
PROVIDERS: Emergency Medicine
DX: R45.851 Suicidal ideations (principal); J44.1 Chronic obstructive pulmonary disease with (acute) exacerbation; K21.9 Gastro-esophageal reflux disease without esophagitis; I10 Essential (primary) hypertension; F25.9 Schizoaffective disorder, unspecified; F32.9 Major depressive disorder, single episode, unspecified; F17.200 Nicotine dependence, unspecified, uncomplicated; Z86.69 Personal history of other diseases of the nervous system and sense organs; Z86.19 Personal history of other infectious and parasitic diseases; Z87.01 Personal history of pneumonia (recurrent); Z87.81 Personal history of (healed) traumatic fracture; Z88.1 Allergy status to other antibiotic agents; Z91.011 Allergy to milk products
CPT/HCPCS: 80053; 80178; 81003; 84999; 85027; 90837; 94644; 99281; 99285; G0480